=== PATIENT | female | born 1975 | race Caucasian/White ===

== ENCOUNTER 2019-05-04 13:38 | Emergency (ER) | payer OTHER ==
[~2019-05-04] VITALS: Ht 162.6 cm; Wt 52.6 kg
[2019-05-04 13:58] VITALS: BP 119/70; Ht 162.6 cm; Wt 52.6 kg
== END 2019-05-04 15:47 | disposition home or self-care (01) ==
LOC: ED 13:38 → EDBD 13:38 → ED 13:38
DX: S93.401A Sprain of unspecified ligament of right ankle, initial encounter (principal); X58.XXXA Exposure to other specified factors, initial encounter; Y93.89 Activity, other specified; Y92.89 Other specified places as the place of occurrence of the external cause; Y99.8 Other external cause status